=== PATIENT | female | born 1960 | race Caucasian/White ===

== ENCOUNTER 2017-02-13 08:38 | Emergency (ER) | payer MEDICAID ==
[~2017-02-13] VITALS: Wt 84.1 kg
[~2017-02-13 08:38] MED LIST: DOCU-144 PO; HYDR-3498 PO; NO CURRENT MEDS; POLY17PO6 PO; TRAM50TA2 PO
[2017-02-13] MEDS ORDERED: ONDANSETRON (ODT) 4 MG TAB ODT STA (09:21)
[2017-02-13] MEDS ORDERED: LIDOCAINE/MYLANTA 40 ML BTL PO ONE (09:30)
[2017-02-13] MEDS ORDERED: FAMOTIDINE 20 MG TAB PO ONE (09:30)
[2017-02-13 09:38] LABS: BASOPHILS % 0.3 % (0.0-2.0); EOSINOPHILS % 0.7 % (0.0-7.0); HEMATOCRIT 39.1 % (37.0-47.0); LYMPHOCYTES # 1.3 10^3/ul (0.8-2.9); LYMPHOCYTES % 22.3 % (15.0-51.0); MEAN CORPUSCULAR HEMOGLOBIN 30.1 pg (29.0-33.0); MEAN CORPUSCULAR HGB CONC 33.2 g/dl (32.0-37.0); MEAN CORPUSCULAR VOLUME 90.5 fl (82.0-101.0); MEAN PLATELET VOLUME 12.2 fl (7.4-10.4); MONOCYTE # 0.3 10^3/ul (0.3-0.9); MONOCYTES % 5.2 % (0.0-11.0); NEUTROPHIL # 4.3 10^3/ul (1.6-7.5); NEUTROPHILS % 71.2 % (39.0-77.0); PLATELET COUNT 146 10^3/UL (140-415); RED BLOOD COUNT 4.32 10^6/ul (4.20-5.40); RED CELL DISTRIBUTION WIDTH 12.3 % (11.5-14.5)
[2017-02-13 09:52] LABS: ADD UMIC NO; UR ASCORBIC ACID NEGATIVE (NEGATIVE); UR BILIRUBIN (Dip) NEGATIVE (NEGATIVE); UR BLOOD (Dip) NEGATIVE (NEGATIVE); UR CLARITY CLEAR (CLEAR); UR COLOR STRAW (YELLOW); UR GLUCOSE (Dip) NEGATIVE (NEGATIVE); UR KETONES (Dip) NEGATIVE (NEGATIVE); UR LEUKOCYTE ESTERASE (Dip) NEGATIVE Leu/ul (NEGATIVE); UR NITRITE (Dip) NEGATIVE (NEGATIVE); UR SPECIFIC GRAVITY (Dip) 1.005 (1.003-1.030); UR TOTAL PROTEIN (Dip) NEGATIVE (NEGATIVE); UR UROBILINOGEN (Dip) NEGATIVE (NEGATIVE)
[2017-02-13 10:05] LABS: ALBUMIN 4.8 g/dl (3.3-4.9); ALBUMIN/GLOBULIN RATIO 1.26; BILIRUBIN,INDIRECT 0.5 mg/dl (0-1.1); BILIRUBIN,TOTAL 0.5 mg/dl (0.2-1.3); CALCIUM 9.5 mg/dl (8.4-10.2); CREATININE 0.62 mg/dl (0.44-1.00); POTASSIUM 4.1 mmol/L (3.5-5.1); TOTAL PROTEIN 8.6 g/dl (6.1-8.1)
--- NOTE | 2017-02-13 10:50 | RADRPT ---
PROCEDURE: CT SCAN OF THE ABDOMEN AND PELVIS NON CONTRAST CLINICAL INDICATION: Abdominal pain, nausea vomiting TECHNIQUE: Utilizing the multi-slice spiral CT scanner, Transaxial images were obtained through the abdomen and pelvis without contrast. Additional sagittal, coronal, MPR images were also obtained. DICOM images are available Radiation Dose: CTDI vol 14.41 mGy, DLP 832.09 mGy-cm. One of more of the following dose reduction techniques were utilized: -automatic exposure control -adjustment of the mA and/or kV according to patient size -Use of iterative reconstruction technique Contrast used: None COMPARISON: 05/13/2015 FINDINGS: Limited slices through the lung bases are clear. Osteophytic spurring of the lower dorsal spine note d. CT Abdomen Fatty liver, gender spleen, nondistended stomach, clips noted in the renal hilum, lesser sac. Pancre atic is small in size. Adrenals, , kidneys are seen without intra renal stones or hydronephrosis. Ga llbladder is not seen. Bowel gas pattern appears nonspecific with no free air or ascites noted. No r etroperitoneal adenopathy seen. Moderate stool noted in the right colon. Appendix not visualized. CT pelvis: Uterus with calcifications, moderate stool in the rectosigmoid colon, normal bladder is seen. No pelvic ascites noted. IMPRESSION: Fatty liver. Moderate colonic stool with no free air or ascites noted. Findings are unchanged from prior study. RPTAT: AAOO Physician Radha Date Time Electronically viewed and signed by Physician Radha on 02/13/2017 10:49 MB/
[2017-02-13] MEDS ORDERED: PANT40TA3 PO (11:40)
[2017-02-13] MEDS ORDERED: ONDA8TAB14 PO (11:40)
--- NOTE | 2017-02-13 11:44 | ERD ---
ER Documentation Chief Complaint Chief Complaint epigastic pain HPI 56-year-old female presents with epigastric pain for last 2 days. She has a burning radiating pain up into her chest. It started after eating something spicy. 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 She denies any blood, diarrhea, constipation. Denies any lower abdominal pain. She denies any right upper quadrant abdominal pain. Patient has a history of cholecystectomy as well. ROS All systems reviewed and are negative except as per history of present illness. Medications Home Meds Active Scripts Pantoprazole* (Protonix*) 40 Mg Tablet.dr, 40 MG PO DAILY, #15 TAB Prov:АНРДЕЙ PORRAS MD 02/13/17 Ondansetron (Ondansetron Odt) 8 Mg Tab.rapdis, 8 MG PO Q6H Y for NAUSEA AND/OR VOMITING, #6 TAB Prov:АНДРЕЙ PORRAS MD 02/13/17 Tramadol HCl (Tramadol HCl) 50 Mg Tablet, 50 MG PO Q4 Y for PAIN, #20 TAB Prov:ZEE ARGUETA NP 05/13/15 Docusate Sodium* (Colace*) 100 Mg Capsule, 100 MG PO BID, #30 CAP Prov:ZEE ARGUETA NP 05/13/15 Polyethylene Glycol* (Miralax*) 17 Gm Powd.pack, 17 GM PO DAILY, #7 Prov:ZEE ARGUETA NP 05/13/15 Hydrocodone Bit-Acetaminophen* ([place]*) 5-325 Mg Tab, 1 TAB PO Q6 Y for PAIN, # 20 TAB Prov:ZEE ARGUETA NP 05/13/15 Reported Medications [none] Unknown Strength No Conflict Check 05/13/15 [No Current Meds] No Conflict Check 08/04/09 Allergies Allergies: Coded Allergies: No Known Drug Allergies (Verified Allergy, Mild, 08/04/09) PMhx/Soc History of Surgery: Yes ( section, appendectomy) Anesthesia Reaction: No Hx Neurological Disorder: No Hx Respiratory Disorders: No Hx Cardiac Disorders: No Hx Psychiatric Problems: No Hx Miscellaneous Medical Probl: No Hx Alcohol Use: No Hx Substance Use: No Hx Tobacco Use: No Physical Exam Vitals Vital Signs Date Time Temp Pulse Resp B/P Pulse Ox O2 Delivery O2 Flow Rate FiO2 02/13/17 08:49 84.1 78 20 168/79 100 Physical Exam Const: [], [id number]. Head: Atraumatic Eyes: Normal Conjunctiva ENT: Normal External Ears, Nose and Mouth. Neck: Full range of motion..~ No meningismus. Resp: Clear to auscultation bilaterally Cardio: Regular rate and rhythm, no murmurs Abd: Soft, primarily in epigastric area. No Corcoran sign and no tenderness at McBurney's point no rebound. non distended. Normal bowel sounds Skin: No petechiae or rashes Back: No midline or flank tenderness Ext: No cyanosis, or edema Neur: Awake and alert Psych: Normal Mood and Affect Result Diagram: 02/13/1792502/13/17925 Results 24 hrs Laboratory Tests Test 02/13/17 09:26 White Blood Count 6.010^3/ul Red Blood Count 4.3210^6/ul Hemoglobin 13.0g/dl Hematocrit 39.1% Mean Corpuscular Volume 90.5fl Mean Corpuscular Hemoglobin 30.1pg Mean Corpuscular Hemoglobin Concent 33.2g/dl Red Cell Distribution Width 12.3% Platelet Count 93294^3/UL Mean Platelet Volume 12.2fl Neutrophils % 71.2% Lymphocytes % 22.3% Monocytes % 5.2% Eosinophils % 0.7% Basophils % 0.3% Nucleated Red Blood Cells % 0.0/100WBC Neutrophils # 4.310^3/ul Lymphocytes # 1.310^3/ul Monocytes # 0.310^3/ul Eosinophils # 0.010^3/ul Basophils # 0.010^3/ul Nucleated Red Blood Cells # 0.010^3/ul Urine Color STRAW Urine Clarity CLEAR Urine pH 7.0 Urine Specific [place] 1.005 Urine Ketones NEGATIVEmg/dL Urine Nitrite NEGATIVEmg/dL Urine Bilirubin NEGATIVEmg/dL Urine Urobilinogen NEGATIVEmg/dL Urine Leukocyte Esterase NEGATIVELeu/ul Urine Hemoglobin NEGATIVEmg/dL Urine Glucose NEGATIVEmg/dL Urine Total Protein NEGATIVEmg/dl Sodium Level 147mmol/L Potassium Level 4.1mmol/L Chloride Level 106mmol/L Carbon Dioxide Level 28mmol/L Anion Gap 17 Blood Urea Nitrogen 11mg/dl Creatinine 0.62mg/dl Glucose Level 118mg/dl Calcium Level 9.5mg/dl Total Bilirubin 0.5mg/dl Direct Bilirubin 0.00mg/dl Indirect Bilirubin 0.5mg/dl Aspartate Amino Transf (AST/SGOT) 28IU/L Alanine Aminotransferase (ALT/SGPT) 32IU/L Alkaline Phosphatase 98IU/L Total Protein 8.6g/dl Albumin 4.8g/dl Globulin 3.80g/dl Albumin/Globulin Ratio 1.26 Lipase 56U/L Current Medications Medications (Trade) Dose Ordered Sig/Niki Route PRN Reason Start Time Stop Time Status Last Admin Dose Admin Ondansetron HCl (Zofran Odt) 8 mg ONCE STAT ODT 02/13/17 09:21 02/13/17 09:23 DC 02/13/17 09:28 Famotidine (Pepcid) 20 mg ONCE ONCE PO 02/13/17 09:30 02/13/17 09:31 DC 02/13/17 09:28 Miscellaneous Medication (Gi Cocktail (2)) 40 ml ONCE ONCE PO 02/13/17 09:30 02/13/17 09:31 DC 02/13/17 09:28 Procedures/MDM CBC and CMP and lipase showed no acute abnormalities. CT abdomen pelvis noncontrast shows no recurrent masses, abscess,. There is stool seen in the colon. No acute findings. Urine is negative Patient is given Pepcid 20 mg of mouth, GI cocktail and Zofran. Patient has epigastric pain and symptoms consistent with GERD or gastritis. Current signs or symptoms do not suggest obstruction, acute abdomen, acute cardiopulmonary etiology. She will treated with Protonix Zofran, Tylenol for pain, primary care follow-up and return precautions. The patient was stable with no new complaints during the ER course. Clinically, there is no current evidence to suggest meningitis, sepsis, acute abdomen, pneumonia, acute coronary syndrome, pulmonary embolism, or any other emergent condition appearing to require further evaluation or hospitalization. The patient should certainly return for any new or worsening symptoms per the aftercare instructions. They should otherwise follow-up with her primary care doctor for reevaluation this week. Departure Diagnosis: Primary Impression: Epigastric pain Condition: Stable Patient Instructions: Gerd (Adult), Epigastric Pain (Uncertain Cause) Additional Instructions: Examines normal hoy. Cheque otro vez con del angel doctor primario en el proximo delgado or regresa para mas o nueva simptomas. BRADLEY TYLENOL PARA DOLOR АНДРЕЙ PORRAS MD Feb 13, 2017 11:44
== END 2017-02-13 11:49 | disposition home or self-care (01) ==
LOC: FTE 08:38
DX: R10.13 Epigastric pain (principal)
CPT/HCPCS: 36415; 74176; 80053; 81003; 83690; 85025; Z7502; Z7610

== ENCOUNTER 2017-03-04 19:21 | Emergency (ER) | payer MEDICAID ==
[~2017-03-04] VITALS: Ht 162.6 cm; Wt 83.9 kg
[~2017-03-04 19:21] MED LIST changes: +ONDA8TAB14 PO; +PANT40TA3 PO
[2017-03-04 19:26] VITALS: Ht 162.6 cm; Wt 83.9 kg
[2017-03-04] MEDS ORDERED: ONDANSETRON 4 MG INJ IV STA (20:10)
[2017-03-04] MEDS ORDERED: SOD CHLORIDE 0.9% 1,000 ML IV STA (20:10)
[2017-03-04] MEDS ORDERED: FAMOTIDINE 20 MG INJ IV STA (20:10)
[2017-03-04] MEDS ORDERED: LIDOCAINE/MYLANTA 40 ML BTL PO STA (20:10)
[2017-03-04 20:28] LABS: BASOPHILS % 0.3 % (0.0-2.0); EOSINOPHILS # 0.1 10^3/ul (0.0-0.5); EOSINOPHILS % 1.2 % (0.0-7.0); HEMATOCRIT 37.5 % (37.0-47.0); HEMOGLOBIN 12.7 g/dl (12.0-16.0); LYMPHOCYTES # 1.5 10^3/ul (0.8-2.9); LYMPHOCYTES % 21.7 % (15.0-51.0); MEAN CORPUSCULAR HEMOGLOBIN 30.2 pg (29.0-33.0); MEAN CORPUSCULAR HGB CONC 33.9 g/dl (32.0-37.0); MEAN CORPUSCULAR VOLUME 89.3 fl (82.0-101.0); MEAN PLATELET VOLUME 12.6 fl (7.4-10.4); MONOCYTE # 0.4 10^3/ul (0.3-0.9); MONOCYTES % 5.5 % (0.0-11.0); NEUTROPHIL # 4.8 10^3/ul (1.6-7.5); PLATELET COUNT 150 10^3/UL (140-415); RED CELL DISTRIBUTION WIDTH 12.2 % (11.5-14.5); WHITE BLOOD COUNT 6.8 10^3/ul (4.8-10.8)
[2017-03-04] MEDS ORDERED: LORAZEPAM 2 MG INJ IV ONE (20:30)
[2017-03-04 20:47] LABS: ALANINE AMINOTRANSFERASE 32 IU/L (13-69); ALBUMIN 4.4 g/dl (3.3-4.9); ALBUMIN/GLOBULIN RATIO 1.15; ALKALINE PHOSPHATASE 96 IU/L (42-121); AMYLASE 74 U/L (11-123); ANION GAP 14 (8-16); ASPARTATE AMINO TRANSFERASE 24 IU/L (15-46); BILIRUBIN,INDIRECT 0.3 mg/dl (0-1.1); BILIRUBIN,TOTAL 0.3 mg/dl (0.2-1.3); BLOOD UREA NITROGEN 16 mg/dl (7-20); CALCIUM 9.6 mg/dl (8.4-10.2); CARBON DIOXIDE 30 mmol/L (21-31); CHLORIDE 105 mmol/L (97-110); CREATININE 0.71 mg/dl (0.44-1.00); GLUCOSE 163 mg/dl (70-220); INR 0.94; POTASSIUM 3.8 mmol/L (3.5-5.1); PROTIME 12.7 Sec (11.9-14.9); SODIUM 145 mmol/L (135-144); TOTAL PROTEIN 8.2 g/dl (6.1-8.1)
[2017-03-04 20:48] LABS: PARTIAL THROMBOPLASTIN TIME 28.1 Sec (25.0-35.0)
[2017-03-04 21:00] LABS: TROPONIN-I < 0.012 ng/ml (0.00-0.12)
--- NOTE | 2017-03-04 21:58 | RADRPT ---
PROCEDURE: US Abdomen. CLINICAL INDICATION: Abdominal Pain TECHNIQUE: Multiple real-time images were acquired of the patient's abdomen and retroperitoneum ut ilizing a high resolution transducer. COMPARISON: None FINDINGS: The liver is of normal size, contour and echogenicity with no mass or intrahepatic ductal dilatation . The gallbladder has been removed. Common bile duct measures 7.2 mm in transverse plane. Pancreas i s not visualized due to gas in the intestinal tract. There is no ascites. The portal vein is patent on color flow Doppler imaging. The right kidney measures 10 cm in length. No hydronephrosis, calculu s or mass is present. IMPRESSION: Post cholecystectomy. No evidence of biliary obstruction. .Dillon Sinclair MD, MD Date Time Electronically viewed and signed by .Dillon Sinclair MD, on 03/04/2017 21:58 .A/
[2017-03-04] MEDS ORDERED: SUCR1TAB56 PO (22:16)
[2017-03-04 22:26] VITALS: BP 136/69; PULSE 73; RESP 20; TEMP 98.3
--- NOTE | 2017-03-04 22:45 | ERD ---
ER Documentation Chief Complaint Chief Complaint abdominal pain x 6 weeks HPI This is a very pleasant Uzbek-speaking 56-year-old female presents to the emergency department complaining of epigastric pain that has intermittent for the past 6 weeks. She initially was seen at [facility] in February [address] scan that indicated a fatty liver but no other acute pathology. The patient indicates her past surgical history includes appendectomy, sections, cholecystectomy and removal of the pancreatic tumor 7 years prior to arrival. She indicates that the pain is a burning-like sensation nonradiating non-positional and is worse after she eats large meals or spicy foods. She has taken antacids which have not been improving her symptoms. She denies any chest pain or pressure that radiates to the neck arm back or jaw. She has no shortness of breath at rest or exertion. She denies any recent hospitalizations. No recent travel. The patient does not consume alcohol or smoke cigarettes. ROS All systems reviewed and are negative except as per history of present illness. Medications Home Meds Active Scripts Sucralfate* (Carafate*) 1 Gm Tab, 1 GM PO QID, #30 TAB Prov:DANIEL HART 03/04/17 Pantoprazole* (Protonix*) 40 Mg Tablet.dr, 40 MG PO DAILY, #15 TAB Prov:АНДРЕЙ PORRAS MD 02/13/17 Ondansetron (Ondansetron Odt) 8 Mg Tab.rapdis, 8 MG PO Q6H Y for NAUSEA AND/OR VOMITING, #6 TAB Prov:АНДРЕЙ PORRAS MD 02/13/17 Tramadol HCl (Tramadol HCl) 50 Mg Tablet, 50 MG PO Q4 Y for PAIN, #20 TAB Prov:ZEE ARGUETA NP 05/13/15 Docusate Sodium* (Colace*) 100 Mg Capsule, 100 MG PO BID, #30 CAP Prov:ZEE ARGUETA NP 05/13/15 Polyethylene Glycol* (Miralax*) 17 Gm Powd.pack, 17 GM PO DAILY, #7 Prov:ZEE ARGUETA NP 05/13/15 Hydrocodone Bit-Acetaminophen* ([place]*) 5-325 Mg Tab, 1 TAB PO Q6 Y for PAIN, # 20 TAB Prov:ZEE ARGUETA PHANI 05/13/15 Reported Medications [none] Unknown Strength No Conflict Check 05/13/15 [No Current Meds] No Conflict Check 08/04/09 Allergies Allergies: Coded Allergies: No Known Drug Allergies (Verified Allergy, Mild, 03/04/17) PMhx/Soc History of Surgery: Yes ( section, appendectomy, hilario, pancreatic tumor removed) Anesthesia Reaction: No Hx Neurological Disorder: No Hx Respiratory Disorders: No Hx Cardiac Disorders: No Hx Psychiatric Problems: No Hx Miscellaneous Medical Probl: Yes (gastritis) Hx Alcohol Use: No Hx Substance Use: No Hx Tobacco Use: No Smoking Status: Never smoker Physical Exam Vitals Vital Signs Date Time Temp Pulse Resp B/P Pulse Ox O2 Delivery O2 Flow Rate FiO2 03/04/17 22:26 98.3 73 20 136/69 100 Room Air 03/04/17 19:26 98.3 81 20 171/78 98 Physical Exam Constitutional:Well-developed. Well-nourished. HEENT:Normocephalic. Atraumatic.Pupils were equal round reactive to light. Moist mucous membranes.No tonsillar exudates. Neck: No nuchal rigidity. No lymphadenopathy. No posterior cervical spine tenderness or step-offs. Respiratory: Not using accessory muscles of respiration.Lungs were clear to auscultation bilaterally. No rhonchi. No rales. No wheezing. Cardiovascular: Regular rate regular rhythm.No murmurs. No rubs were appreciated.S1, S2 normal. Distal pulses are palpable 2+ bilaterally. GI: Abdomen was soft. Mild epigastric tenderness. Non Distended. No pulsatile abdominal masses or bruits. No rebound. No guarding. Bowel sounds were present and normal. Muscle skeletal: Full range of motion of both the upper and lower extremities bilaterally.Normal muscle tone.No assymetrical calf tenderness or swelling. Skin: No petechia, no purpura. No lesions on the palms or the soles of the feet. No maculopapular rash. NEURO: Patient was alert, awake, orientated x3.No facial droop. Gait observed and normal with no ataxia.Speech had regular rate and rhythm. No focal neurological deficits. Result Diagram: 03/04/17200703/04/172007 Results 24 hrs Laboratory Tests Test 03/04/17 20:08 White Blood Count 6.810^3/ul Red Blood Count 4.2010^6/ul Hemoglobin 12.7g/dl Hematocrit 37.5% Mean Corpuscular Volume 89.3fl Mean Corpuscular Hemoglobin 30.2pg Mean Corpuscular Hemoglobin Concent 33.9g/dl Red Cell Distribution Width 12.2% Platelet Count 76902^3/UL Mean Platelet Volume 12.6fl Neutrophils % 71.0% Lymphocytes % 21.7% Monocytes % 5.5% Eosinophils % 1.2% Basophils % 0.3% Nucleated Red Blood Cells % 0.0/100WBC Neutrophils # 4.810^3/ul Lymphocytes # 1.510^3/ul Monocytes # 0.410^3/ul Eosinophils # 0.110^3/ul Basophils # 0.010^3/ul Nucleated Red Blood Cells # 0.010^3/ul Prothrombin Time 12.7Sec Prothrombin Time Ratio 1.0 INR International Normalized Ratio 0.94 Activated Partial Thromboplast Time 28.1Sec Sodium Level 145mmol/L Potassium Level 3.8mmol/L Chloride Level 105mmol/L Carbon Dioxide Level 30mmol/L Anion Gap 14 Blood Urea Nitrogen 16mg/dl Creatinine 0.71mg/dl Glucose Level 163mg/dl Calcium Level 9.6mg/dl Total Bilirubin 0.3mg/dl Direct Bilirubin 0.00mg/dl Indirect Bilirubin 0.3mg/dl Aspartate Amino Transf (AST/SGOT) 24IU/L Alanine Aminotransferase (ALT/SGPT) 32IU/L Alkaline Phosphatase 96IU/L Troponin I < 0.012ng/ml Total Protein 8.2g/dl Albumin 4.4g/dl Globulin 3.80g/dl Albumin/Globulin Ratio 1.15 Amylase Level 74U/L Lipase 81U/L Current Medications Medications (Trade) Dose Ordered Sig/Niki Route PRN Reason Start Time Stop Time Status Last Admin Dose Admin Sodium Chloride (NS) 1,000 ml @ 1,000 mls/hr Q1H STAT IV 03/04/17 20:10 03/04/17 21:20 DC 03/04/17 20:22 Ondansetron HCl (Zofran Inj) 4 mg ONCE STAT IV 03/04/17 20:10 03/04/17 20:13 DC 03/04/17 20:17 Famotidine (Pepcid Iv) 20 mg ONCE STAT IV 03/04/17 20:10 03/04/17 20:13 DC 03/04/17 20:17 Miscellaneous Medication (Gi Cocktail (2)) 40 ml ONCE STAT PO 03/04/17 20:10 03/04/17 20:13 DC 03/04/17 20:17 Lorazepam (Ativan) 0.5 mg ONCE ONCE IV 03/04/17 20:30 03/04/17 20:31 DC 03/04/17 20:17 Procedures/MDM The patient presented to the emergency department with epigastric pain. My differential diagnosis included but was not limited to abdominal aortic aneurysm , choledocholithiasis, gallstone ileus, renal colic, pyelonephritis, pancreatitis, peptic ulcer disease, atypical myocardical infarction, mesenteric ischemia, GERD, pulmonary infarction. The patient was placed on a child monitor, continuous pulse oximetry and IV access was established by nursing staff. An EKG was obtained to rule out myocardial ischemia. There was no elevation of LFTs to suggest ductal obstruction, cholangitis, cholecystiitis or hepatitis. Given that the urinalysis did not show bilirubinuria, my suspicion for common duct obstruction or hepatitis was low. 12 Lead EKG tracing ordered and reviewed by myself showed: Normal sinus rhythm of 77 bpm and no arrhythmia. AK interval normal. QRS duration normal. No ST segment elevation No ST segment depression. No changes consistent with acute ischemia. Patient had no electrolyte abnormalities. I obtained an ultrasound of the abdomen there is no evidence of choledocholithiasis. The daughter also indicated that the patient has been feeling very anxious and she was concerned that she could have cancer. I indicated to the patient that at this time I did not see any severe electrolyte abnormalities her physical exam findings are diagnostic imaging to suggest an abdominal tumor at this time. The patient states she felt comfortable being discharged home. She did receive Ativan in the emergency department and a GI cocktail with complete resolution of her symptoms. The patient was discharged home in fair condition. They were instructed to return to the emergency department at any time if there was any worsening of their condition. The patient stated they would follow up with their PCP in the next 24-48 hours to initiate a suitable medication regimen under the care of their PCP as well as to allow their PCP to monitor any drug reactions. The patient was discharged home with prescriptions after they gave informed consent to the new medication. They were also fully informed by myself on the adverse effects and adverse drug interactions in order to provide adequate safeguards to prevent possible adverse reactions to medications. She was given a prescription of sucralfate Departure Diagnosis: Primary Impression: Epigastric abdominal pain Condition: Fair Patient Instructions: Epigastric Pain (Uncertain Cause) DANIEL HART Mar 04, 2017 22:45
== END 2017-03-04 22:45 | disposition home or self-care (01) ==
LOC: E/R 19:21
DX: R10.13 Epigastric pain (principal)
CPT/HCPCS: 76705; 80053; 82150; 83690; 84484; 85025; 85610; 85730; 93005; 96374; 96375; J2060; J2405; J7030; Z7502; Z7610